=== PATIENT | male | born 1985 | race American Indian/Alaskan Native ===

== ENCOUNTER 2017-10-17 01:20 | Emergency (ER) | payer SELFPAY | END 2017-10-17 04:33 | disposition home or self-care (01) | PROVIDERS: Emergency Provider Emergency Medicine; Visit Provider Emergency Medicine | DX: T68.XXXA Hypothermia, initial encounter (principal); F10.129 Alcohol abuse with intoxication, unspecified | CPT/HCPCS: 36415; 80048; 80320; 85025; 99058; 99285 ==

== ENCOUNTER 2020-09-25 22:43 | Emergency (ER) | payer OTHER, MEDICAID, SELFPAY ==
[2020-09-25 22:44] VITALS: BP 176/106; TEMP 37.4; BMI 19.1
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
== END 2020-09-25 23:10 | disposition home or self-care (01) ==
LOC: ED 23:20
PROVIDERS: Emergency Provider Emergency Medicine
DX: Z00.8 Encounter for other general examination (principal); S01.01XA Laceration without foreign body of scalp, initial encounter; Y04.8XXA Assault by other bodily force, initial encounter
CPT/HCPCS: 99281

== ENCOUNTER 2021-08-16 12:46 | Observation (INO) | payer OTHER, MEDICAID, SELFPAY ==
[2021-08-16] VITALS (28 sets, daily range): BP systolic 111–159; BP diastolic 67–93; PULSE 72–114; RESP 10–19; TEMP 36–36.9; O2SAT 90–96; BMI 19.8
--- NOTE | 2021-08-16 13:08 | DI.CT.S_ITS ---
PROCEDURE: CT FACIAL BONES WO CON INDICATIONS: Dog bite. Extensive facial trauma. TECHNIQUE: Noncontrast 2.5 mm thick axial images acquired from the mandible through the frontal sinuses, with coronal and sagittal reformatting. For radiation dose reduction, the following was used: automated exposure control, adjustment of mA and/or kV according to patient size. COMPARISON: None. FINDINGS: Image quality: Diagnostic, with note made of motion artifact. Bones and teeth: Orbital blank are intact. Sinus blank show no fracture or deformity. Nasal bones and septum are intact. Visualized portions of the mandible demonstrate no fractures or subluxation. Zygomatic arches are intact. Pterygoid plates are intact. Visualized portions of the skull base and auditory canals are intact. Dental caries can be seen. Sinuses: Mild mucosal thickening is seen within the sphenoid sinuses. There is a small mucous retention cyst seen along the inferior aspect of the right maxillary sinus. Paranasal sinuses are otherwise well aerated, without fluid levels, mucosal thickening, or mucoceles. Mastoid air cells are aerated. Soft tissues: Extensive soft tissue injury can be seen involving the left side of the face, including within the left upper lip and the left cheek, with lacerations and missing tissue with extensive subcutaneous gas. A small bubble of gas can be seen involving the inferior aspect of the left orbit, which is extraconal. Injuries are also seen of the region of the left auricle, with portions of the left auricle missing, with extensive regional soft tissue gas. Presumed blood can be seen within the left external auditory canal. No radiopaque foreign bodies are seen. Vascular: Visualized vascular structures appear normal in the absence of contrast. Bony vascular foramina and canals are intact. IMPRESSION: Extensive soft tissue injuries are seen involving the left side of the face and the region of the left auricle. No radiopaque foreign bodies are seen. No underlying displaced fracture is identified. Dictated by: Michael Powers M.D. on 08/16/2021 at 12:45 Approved by: Michael Powers M.D. on 08/16/2021 at 12:49
[2021-08-16 13:16] LABS: Add Manual Diff / Slide Review NO; Basophils Absolute Auto 100 /uL (0-100); Basophils Percent Auto 0.9 % (0-2); Eosinophils Absolute Auto 600 /uL (0-450); Eosinophils Percent Auto 5.9 % (2-4); Hematocrit 42.5 % (41-53); Hemoglobin 14.5 g/dL (13.5-17.5); Lymphocytes Absolute Auto 5400 /uL (1100-4500); Lymphocytes Percent Auto 58.3 % (25-40); Mean Corpuscular HGB Conc 34.1 % (30-36); Mean Corpuscular Hemoglobin 32.3 PG (26-34); Mean Corpuscular Volume 94.8 fL (80-100); Monocytes Absolute Auto 600 /uL (0-900); Monocytes Percent Auto 6.9 % (3-14); Neutrophils Absolute Auto 2600 /uL (1500-7000); Platelet Count 269 X10^3/uL (150-400); Red Blood Cell Count 4.48 X10^6/uL (4.5-5.9); Red Cell Distribution Width 13.1 % (11.6-14.8); White Blood Cell Count 9.3 X10^3/uL (4.5-11.0)
[2021-08-16 13:19] LABS: Alanine Aminotransferase 70 IU/L (<50); Albumin Globulin Ratio 1.7 (1.0-2.8); Alkaline Phosphatase 65 U/L (38-126); Aspartate Aminotransferase 106 IU/L (17-59); BUN Creatinine Ratio 12.9 (6-22); Bilirubin Total 0.6 mg/dL (0.2-1.3); Blood Urea Nitrogen 11 mg/dL (9-20); Calcium 9.2 mg/dL (8.4-10.2); Carbon Dioxide 24 mmol/L (22-32); Chloride 108 mmol/L (98-107); Estimated Glomerular Filt Rate > 60.0 mL/min (>60); Glucose 123 mg/dL (70-100); HEMOLYSIS 16 (0-50); Potassium 3.6 mmol/L (3.4-5.1); Sodium 144 mmol/L (137-145)
[2021-08-16] MEDS: TET,DIPH,PERTUSS(ACELL),VAC/PF 0.5 ML SYRINGE IM (13:24)
[2021-08-16] MEDS: MORPHINE 4 MG/ML INJ IV (13:24)
[2021-08-16] MEDS: AMPICILLIN/SULBACTAM 3 GM 3 GM in SODIUM CHLORIDE 0.9% 100 ML IV ×2 (13:25→22:50)
--- NOTE | 2021-08-16 13:54 | DI.RAD.S_ITS ---
PROCEDURE: XR HAND RT MIN 3V INDICATIONS: swelling, decreased ROM, injury 1 week ago TECHNIQUE: 3 views of the hand(s) acquired. COMPARISON: None. FINDINGS: Bones: Moderately displaced comminuted fracture of the 5th metacarpal head and neck. Soft tissues: No suspicious soft tissue calcifications. IMPRESSION: 5th metacarpal head/neck fracture. Dictated by: Kisha George M.D. on 08/16/2021 at 15:13 Approved by: Kisha George M.D. on 08/16/2021 at 15:13
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
[2021-08-16] MEDS: MORPHINE 2 MG/ML INJ IV (16:07)
--- NOTE | 2021-08-16 17:59 | SUR.OPER ---
Supine on padded OR bed, head on pillow, arms secured on padded arm boards at <90 degrees abduction, legs uncrossed, safety belt at thigh, tape over blanket over lower legs.
[2021-08-16 18:19] LABS: COVID19 -Nasal RAPID Negative (Negative)
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
--- NOTE | 2021-08-16 18:22 | PM.PREOP ---
Pre-operative Note Interval Note History & Physical reviewed/Exam performed by Physician: Yes Changes to H&P: No
--- NOTE | 2021-08-16 18:25 | P.OP_ITS ---
Operative Date/Time/Diagnoses Date of procedure: 08/16/21 Time of procedure: 20:34 Pre-op diagnosis: Multiple complex lacerations of the face and left ear with tissue loss Post-op diagnosis: same Procedure & Clinicians Procedure: 1. Mucosal advancement flap left upper lip complex laceration 2. Melolabial advancement flap left upper lip complex laceration 3. Cervicofacial advancement flap complex full-thickness defect left cheek 4. Postauricular advancement flap left inferior ear for full-thickness defect 5. 30 cm complex lip cheek and ear lacerations requiring closure Same procedure as scheduled: Yes Indications: 28-year-old male status post dog bite injuries to the face and ear presents for closure. Following discussion of the material risks benefits complications and alternatives, he elected to proceed Surgeon: Edvin Ashraf Therapist Radiation: Dayo Rajan Anesthesia Type: General and Local Operative Notes Findings: 30 cm complex lacerations including the left upper lip, left cheek and left inferior ear, complex closure of each. Left upper lip full-thickness skin and vermilion absent from left lateral columella to nearly the commissure extending into the upper lip. Separate full-thickness tissue loss of approximately 3 cm left mid cheek, full-thickness. Full-thickness inferior 50% loss left ear including cartilage. Estimated Blood Loss (mL): 20 Procedure in detail: Following confirmation of consent the patient was brought to the operating room and placed in the supine position. General endotracheal anesthesia was administered. Documentation was performed and the wound was prepped with Betadine and draped in the usual sterile fashion. The left upper lip full- thickness defect extending down to muscle, with the facial artery completely exposed but intact, missing a significant portion of the wet mucosa, vermilion border, and the majority of the cutaneous lip subunit was reconstructed by 1st undermining the wet mucosa and advancing superiorly as a flap. A left melolabial advancement flap was then designed undermined and inset, which shared a border with the large left cheek full-thickness irregular defect with significant exposed fat. A cervical facial flap was designed and inset after appropriate undermining to fill the cheek defect with significant tissue debridement of the skin edges required. The inferior 50% of the left ear was missing from the dog bite any exposed cartilage was trimmed and a infra- auricular/postauricular advancement flap was designed and undermined with the exposed free edge of the residual helix sutured to the flap for closure. Antibiotic ointment was applied followed by a bandage. Sponge and needle counts were correct. He was extubated in the operating room taken to recovery room in stable condition without known complication. research program assistant was required due to the extensive nature of the soft tissue defects and missing tissue as well as the shear volume of the injury and length of the incisions. Post-operative Condition: stable Disposition: same day surgery Plan for aftercare: As discussed with the hospitalist, she would prefer the patient was admitted for overnight observation under our orders, but from our standpoint is free to be discharged home as long as there is a responsible adult and home to go to. If not he will be kept overnight with social Work consultation in the morning. Tylenol and Advil for pain control, antibiotic ointment to all exposed incisions at all times, ice as needed, elevate head of bed.
[2021-08-16] MEDS: BUPIVACAINE 0.5% W/ EPI (PF) 30 ML VIAL INJ (19:09)
--- NOTE | 2021-08-16 19:49 | ED_ITS ---
HPI - Trauma General Chief Complaint: Trauma Stated Complaint: bit by dog, missing 1/2 of ear & cheek lac Time Seen by Provider: 08/16/21 13:08 Source: patient Mode of arrival: Ambulatory Limitations: no limitations History of Present Illness HPI narrative: The patient arrives to the ER by EMS after being bit in the face by his pit bull dog. He denies aggressive approach to the dog. There are plain. The dog is quite affectionate generally. He sustained a large laceration, avulsing the majority of the left upper lip. The skin flap is peeled laterally. He has a large, open lesion in the left mid cheek. This is not a through and through laceration. There is no active bleeding. A significant portion of his left external ear is missing. There is no eye, nose or neck injury. There is no oral injury. Is no cough or shortness of breath. His last meal was about 11:00 a.m. His last tetanus is unknown. He has no other injuries. He is talking in full sentences, complaining of facial pain. Related Data Allergies Allergy/AdvReac Type Severity Reaction Status Date / Time No Known Drug Allergies Allergy Verified 08/16/21 12:48 Review of Systems Constitutional Constitutional: Denies body ache(s), Denies chills, Denies fever(s) and Denies weakness Eyes Comments: No eye injury. ENT Ears, Nose, Mouth, and Throat: Reports as per HPI, Denies vertigo and Denies dizziness Cardiovascular Cardiovascular: Denies chest pain Respiratory Respiratory: Denies chest congestion and Denies cough Gastrointestinal Gastrointestinal: Denies abdominal pain Musculoskeletal Musculoskeletal: Denies numbness Comments: No Extremity injuries. Integumentary/Breasts Comments: See HPI. Neurologic Neurologic: Denies confusion, Denies vertigo, Denies dizziness, Denies numbness and Denies weakness Psychiatric Psychiatric: Denies confusion Patient History Medical History (Updated 08/16/21 @ 20:07 by Vimal Montalvo MD) Left femoral shaft fracture No chronic diseases present Social History Smoking Status: Current every day smoker Smoking Status: Current every day smoker tobacco type: cigarettes alcohol intake frequency: 0-2 drinks per day Alcohol type: beer Substance Use Type: marijuana Exam Initial Vital Signs Initial Vital Signs: Vital Signs Temperature 96.8 F L 08/16/21 12:48 Pulse Rate 107 H 08/16/21 12:48 Respiratory Rate 15 08/16/21 12:48 Blood Pressure 136/93 H 08/16/21 12:48 Pulse Oximetry 96 08/16/21 12:48 Const General: cooperative, healthy appearing and comfortable [facility] Head: laceration (Large deep left cheek laceration, not through and through. No foreign body) Ears: other (Left lower external earlobe is missing from the bite.) Nose: external nose normal and nares normal Face and sinus: other (Deep avulsion laceration of the left upper lip and face.) Mouth: oral mucosae normal Teeth and gingiva: dentition normal Throat: posterior oropharynx normal Eyes General: appearance normal, both eyes and all related structures Neck Neck: normal visual inspection Resp Effort & Inspection: normal respiratory effort Auscultation: clear to auscultation bilaterally Cardio Rate: regular rate Rhythm: regular rhythm Heart Sounds: S1 normal, S2 normal, no click, no gallops and no murmurs Skin General: no rashes or lesions noted (Other than noted above.) Neuro General: patient alert, patient awake, patient oriented x3 and no focal motor deficits Speech: speech normal Extrem General: normal to inspection Course Course Course Narrative: The lacerations were cleansed, packed. Tetanus was updated. Unasyn was given. Facial CT showed no bony injury, no foreign bodies. The case was discussed with general surgery as a trauma case, surgery deferred to ENT. Dr. Rajan took the ENT call. He has agreed to see the patient in the ER for complex wound repair. Orders Ordered: ED Orders 08/16/21 13:08 CT facial bones wo con Stat CBC Auto Diff [Complete Blood Count AUTO DIFF] Stat CMP [Comprehensive Metabolic Panel] Stat 08/16/21 13:54 XR hand RT min 3V Stat 08/16/21 17:46 COVID19 -Nasal swab/Pre-Proc Stat Discontinued Medications Bupivacaine HCl/Epinephrine Bitart (Bupivacaine 0.5% W/ Epi (Pf) 30 Ml Vial) 30 ml INJ NOW ONE Stop: 08/16/21 19:09 Last Admin: 08/16/21 19:09 Dose: 30 ml Documented by: ARELI Diphtheria/Tetanus/Acell Pertussis (Tet,Diph,Pertuss(Acell),Vac/Pf 0.5 Ml Syringe) 0.5 ml IM .ONCE ONE Stop: 08/16/21 13:11 Last Admin: 08/16/21 13:24 Dose: 0.5 ml Documented by: DIMITRI Hydromorphone HCl (Hydromorphone 1 Mg Inj) 1 mg IV NOW ONE Stop: 08/16/21 13:09 Last Admin: 08/16/21 13:19 Dose: Not Given Documented by: DIMITRI Ampicillin Sodium/Sulbactam (Sodium 3 gm/ Sodium Chloride) 100 mls @ 100 mls/hr IV NOW ONE Stop: 08/16/21 13:09 Last Infusion: 08/16/21 14:45 Dose: 0 mls/hr Documented by: Admin: 08/16/21 13:25 Dose: 100 mls/hr Documented by: DIMITRI Morphine Sulfate (Morphine 4 Mg/Ml Inj) 4 mg IV NOW ONE Stop: 08/16/21 13:20 Last Admin: 08/16/21 13:24 Dose: 4 mg Documented by: DIMITRI Morphine Sulfate (Morphine 2 Mg/Ml Inj) 2 mg IV NOW ONE Stop: 08/16/21 15:49 Last Admin: 08/16/21 16:07 Dose: 2 mg Documented by: DIMITRI Vital Signs Vital signs: Vital Signs - 8 hr 08/16/21 12:48 08/16/21 13:01 08/16/21 13:30 Temperature 96.8 F L Pulse Rate 107 H 87 88 Respiratory Rate 15 Blood Pressure 136/93 H Pulse Oximetry 96 92 95 08/16/21 13:31 08/16/21 13:39 08/16/21 14:00 Temperature Pulse Rate 86 78 81 Respiratory Rate Blood Pressure 132/68 126/72 Pulse Oximetry 96 93 94 08/16/21 14:01 08/16/21 14:30 08/16/21 15:00 Temperature Pulse Rate 80 79 72 Respiratory Rate Blood Pressure 122/75 124/82 114/68 Pulse Oximetry 94 92 91 08/16/21 15:30 08/16/21 16:00 08/16/21 16:01 Temperature Pulse Rate 76 90 98 H Respiratory Rate 18 Blood Pressure 116/67 159/85 H Pulse Oximetry 90 L 94 94 08/16/21 16:30 08/16/21 17:00 08/16/21 17:30 Temperature Pulse Rate 84 80 82 Respiratory Rate Blood Pressure 128/74 119/70 114/73 Pulse Oximetry 92 92 91 MDM - Trauma Lab Data Result diagrams: 08/16/21 13:08 08/16/21 13:08 Labs: Lab Results 08/16/21 08/16/21 08/16/21 Range/Units 13:08 13:08 17:46 WBC 9.3 (4.5-11.0) X10^3/uL RBC 4.48 L (4.5-5.9) X10^6/uL Hgb 14.5 (13.5-17.5) g/dL Hct 42.5 (41-53) % MCV 94.8 (80-100) fL MCH 32.3 (26-34) PG MCHC 34.1 (30-36) % RDW 13.1 (11.6-14.8) % Plt Count 269 (150-400) X10^3/uL Neut % (Auto) 28.0 L (50-75) % Lymph % (Auto) 58.3 H (25-40) % Benzie % (Auto) 6.9 (3-14) % Eos % (Auto) 5.9 H (2-4) % Baso % (Auto) 0.9 (0-2) % Neut # (Auto) 2600 (3428-0568) /uL Lymph # (Auto) 5400 H (8724-6561) /uL Benzie # (Auto) 600 (0-900) /uL Eos # (Auto) 600 H (0-450) /uL Baso # (Auto) 100 (0-100) /uL Sodium 144 (137-145) mmol/L Potassium 3.6 (3.4-5.1) mmol/L Chloride 108 H (98-107) mmol/L Carbon Dioxide 24 (22-32) mmol/L BUN 11 (9-20) mg/dL Creatinine 0.85 (0.66-1.25) mg/dL Estimated GFR > 60.0 (>60) mL/min BUN/Creatinine Ratio 12.9 (6-22) Glucose 123 H (70-100) mg/dL Calcium 9.2 (8.4-10.2) mg/dL Total Bilirubin 0.6 (0.2-1.3) mg/dL AST 106 H (17-59) IU/L ALT 70 H (<50) IU/L Alkaline Phosphatase 65 (38-126) U/L Total Protein 8.0 (6.3-8.2) g/dL Albumin 5.0 (3.5-5.0) g/dL Globulin 3.0 (1.7-4.1) g/dL Albumin/Globulin Ratio 1.7 (1.0-2.8) SARS-CoV-2 (PCR) Negative (Negative) Imaging Data Facial bone CT: Radiologist's Impression: Soft tissue injuries. No bony injury. No foreign body. Critical Care Time Critical Care Time Critical Care Time: Yes Total Critical Care Time: 40 Attestation: Critical care time included initial assessment, and initial clinical care. Case was discussed with the patient, as well as General surgery, ENT and Anesthesia. Discharge Plan Departure Patient Disposition: Admitted to Surgery Clinical Impression: Complex laceration of circumoral region of face, Laceration of cheek, left, Complex laceration of left ear Admit Date/Time: 08/16/21 17:47 Admit Provider: Dayo Rajan
[2021-08-16] MEDS: BACITRACIN 28 GM OINT 1 APPLIC TOP (20:18)
[2021-08-16] MEDS: ONDANSETRON 4 MG/2 ML INJ IV (22:31)
[2021-08-17 00:47] VITALS: BP 127/73; PULSE 87; RESP 18; O2SAT 93
[2021-08-17 01:54] VITALS: BP 129/84; PULSE 146; RESP 18; O2SAT 97
[2021-08-17] MEDS: AMPICILLIN/SULBACTAM 3 GM 3 GM in SODIUM CHLORIDE 0.9% 100 ML IV ×2 (04:00→08:41)
[2021-08-17] MEDS: OXYCODONE IR 5 MG TABLET PO (04:15)
[2021-08-17 04:46] VITALS: BP 137/79; PULSE 83; RESP 19; TEMP 36.8; O2SAT 97
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
[2021-08-17 07:18] VITALS: O2SAT 97
[2021-08-17] MEDS: IBUPROFEN 600 MG TABLET PO ×2 (07:48→14:00)
[2021-08-17] MEDS: AMOXICILLIN/CLAV 875/125 MG 1 TAB PO (08:41)
[2021-08-17] MEDS: BACITRACIN OINT 0.9 GM PCKT 1 APPLIC TOP (09:05)
[2021-08-17 10:20] VITALS: BP 125/77; PULSE 63; RESP 18; TEMP 37.4; O2SAT 97
--- NOTE | 2021-08-17 13:23 | PC.NURSE ---
Addendum entered by Thelma Barr R.N. 08/17/21 15:52: Pt is escorted via wheelchair with all of his belongings to hospital entrance where his friend will pick him up arriving from [facility]. Original Note: Pt is A&Ox4, VSS, afebrile on RA. He reports minimal pain to the left side of his face and ear this a.m. He declines prn oxycodone but is aggreeable to PRN ibuprofen. MALIK Malagon at bedside this a.m. evaluating patient and making an assessment of his discharge situation. He does have a house, and is agreeable to discharging home. MD Dayo Rajan, notified of completion of the consult and clears patient for discharge home on oral augmenting 875-125mg BID x10 days, along with topical bacitracin given to patient. MD Rajan states for patient to call the office for a follow up appointment next week for further evaluation of his wounds, but notes that the sutures are dissovable and not necessary to remove. Pt verbalizes understanding of wound care, medications and follow up care.
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
== END 2021-08-17 15:05 | disposition home or self-care (01) ==
LOC: ED 16:47 → AC 17:50
PROVIDERS: Admitting Provider Otolaryngology; Emergency Provider Emergency Medicine; Referring Provider Emergency Medicine; Visit Provider Otolaryngology
PROC: 0HB1XZZ Excision of Face Skin, External Approach (ICD-10-PCS; CPT 14061; principal; 2021-08-16 18:00)
DX: S01.452A Open bite of left cheek and temporomandibular area, initial encounter (principal); S01.352A Open bite of left ear, initial encounter; S01.551A Open bite of lip, initial encounter; W54.0XXA Bitten by dog, initial encounter; Z23 Encounter for immunization
CPT/HCPCS: 14061; 14301; 70486; 73130; 80053; 85025; 87635; 90471; 96365; 96366; 96375; 96376; 99285; 99291; C9803; G0378; 90715; G0390; J0295; J2270; J2405